=== PATIENT | female | born 1960 | race Caucasian/White ===

== ENCOUNTER 2017-01-17 17:42 | Emergency (ER) | payer BC ==
--- NOTE | 2017-01-17 18:06 | Emergency Department Record ---
History of Present Illness - General Chief Complaint: Knee injury Stated Complaint: R KNEE INJURY Time Seen by Provider: 01/17/17 17:57 Source: Patient Mode of Arrival: Ambulatory Limitations: No limitations - History of Present Illness Initial Comments: 56 yo female presents after a fall while standing on her toilet cleaning in the bathroom. No head or neck injury. She did hit her medial right knee and ler left ankle is now sore. No lacerations to the skin. No chest or abdominal pain. No new back pain. She does have some chronic back pain with a nerve stimulator. MD Complaint: Knee injury, Ankle injury Onset/Timin -: Hour(s) Injury: Knee: Right, Ankle: Left Type of Injury: Blunt, Other Place: Home Severity: Moderate Severity scale (1-10): 1 Improves With: Rest Worsens With: Movement, Weight bearing Context: Fall - Related Data Home Medications Medication Instructions Recorded Confirmed Last Taken Albuterol Sulfate 0.083% [Neb] 3 ml NEB .EVERY 4-6 HOURS PRN 01/17/17 01/17/17 1 Day Ago ~01/16/17 Albuterol Sulfate [Proair Hfa] 1 - 2 puff IH .EVERY 4-6 HOURS PRN 01/17/1701/17 1 Day Ago ~01/16/17 Atorvastatin Calcium 20 mg PO DAILY 01/17/17 01/17/17 1 Day Ago ~01/16/17 Duloxetine HCl [Cymbalta] 60 mg PO DAILY 01/17/17 01/17/17 1 Day Ago ~01/16/17 Ergocalciferol (Vitamin D2) 50,000 unit PO WEEKLY 01/17/17 01/17/17 1 Day Ago [Vitamin D2] ~01/16/17 Exenatide Microspheres [Bydureon 2 mg SQ WEEKLY 01/17/17 01/17/17 1 Day Ago Pen] ~01/16/17 Fluticasone Propionate [Allergy 1 spray NS ASDIR 01/17/17 01/17/17 1 Day Ago Relief] ~01/16/17 Glyburide 5 mg PO DAILY 01/17/17 01/17/17 1 Day Ago ~01/16/17 Latanoprost 0.005% Opth Maddy 1 drop OP DAILY 01/17/17 01/17/17 1 Day Ago [Xalatan] ~01/16/17 Lisinopril [Prinivil] 10 mg PO DAILY 01/17/17 01/17/17 1 Day Ago ~01/16/17 Metformin HCl 850 mg PO TID 01/17/17 01/17/17 1 Day Ago ~01/16/17 Metoprolol Succinate 100 mg PO DAILY 01/17/17 01/17/17 Unknown Pregabalin [Lyrica] 150 mg PO BID 01/17/17 01/17/17 1 Day Ago ~01/16/17 Allergies Allergy/AdvReac Type Severity Reaction Status Date / Time No Known Drug Allergies Allergy Verified 01/17/17 17:59 Travel Screening - Travel/Exposure Within Last 30 Days Have you traveled within the last 30 days?: No - Travel/Exposure Within Last Year Have you traveled outside the [place] in the last year?: No - Additonal Travel Details Have you been exposed to anyone with a communicable illness?: No - Travel Symptoms Symptom Screening: None Review of Systems Constitutional: Denies: Chills, Fever, Malaise, Weakness Eyes: Denies: Eye discharge, Eye pain, Photophobia ENT: Denies: Congestion, Throat pain Respiratory: Denies: Cough, Dyspnea, Hemoptysis, Wheezes Cardiovascular: Denies: Chest pain, Syncope Endocrine: Denies: Fatigue, Polydipsia, Polyuria Gastrointestinal: Denies: Abdominal pain, Diarrhea, Nausea, Vomiting Genitourinary: Denies: Dysuria, Urgency Musculoskeletal: Reports: As per HPI, Arthralgia, Back pain, Joint swelling, Myalgia. Denies: Neck pain Skin: Reports: As per HPI, Bruising. Denies: Change in color, Rash Neurological: Denies: Headache, Numbness, Weakness Psychiatric: Denies: Anxiety Hematological/Lymphatic: Denies: Blood Clots, Easy bleeding, Easy bruising Past Medical History - SOCIAL HISTORY Smoking Status: Former smoker Alcohol Use: None Drug Use: None - RESPIRATORY Hx Asthma: Yes Hx Bronchitis: Yes Hx COPD: Yes Hx Pneumonia: Yes Hx Sleep Apnea: Yes Hx of CPAP: Yes - CARDIOVASCULAR Hx Hypertension: Yes Comment:: angina - NEURO Hx Neuro Disorders: No - GI Hx Diverticulitis: Yes Hx Reflux: Yes Hx Irritable Bowel: Yes - Hx Bladder Problem: Yes (bladder sling) - ENDOCRINE Hx Diabetes: Yes Hx Thyroid Disease: No - PSYCH Hx Depression: Yes - HEMATOLOGY/ONCOLOGY Hx Anemia: No Hx Blood Disorders: No Hx Bruising: No Hx Cancer: No Family Medical History Any Significant Family History?: Yes Physical Exam - General General Appearance: Alert, Oriented x3, Cooperative, No acute distress Limitations: No limitations - Head Head exam: Atraumatic, Normocephalic, Normal inspection Head exam detail: negative: Abrasion, Contusion, Hematoma, Laceration - Eye Eye exam: Normal appearance. negative: Periorbital swelling - ENT ENT exam: Normal exam. negative: Mucous membranes moist Ear exam: Normal external inspection Nasal Exam: Normal inspection Mouth exam: Normal external inspection - Neck Neck exam: Normal inspection, Full ROM. negative: Tenderness - Respiratory Respiratory exam: Normal lung sounds bilaterally. negative: Respiratory distress - Cardiovascular Cardiovascular Exam: Regular rate, Normal rhythm, Normal heart sounds - GI/Abdominal GI/Abdominal exam: Soft. negative: Tenderness - Rectal Rectal exam: Deferred - exam: Deferred - Extremities Extremities exam: Full ROM, Joint swelling, Tenderness. negative: Normal inspection Image of Full Body: 1 - knee tenderness medial with bruising, full ROM, patella is intact and full ROM without pain or tenderness. 2 - mild diffuse ankle swelling, normal inspection - Back Back exam: Reports: Full ROM. Denies: CVA tenderness (R), CVA tenderness (L) - Neurological Neurological exam: Alert, Oriented X3. negative: Altered - Psychiatric Psychiatric exam: Normal affect, Normal mood - Skin Skin exam: Dry, Intact, Normal color, Warm Course Vital Signs 01/17/17 17:46 Temperature 99.0 F Pulse Rate 87 Respiratory 16 Rate Blood Pressure 201/115 Pulse Ox 98 - Reevaluation(s) Reevaluation #1: 01/17/17 18:33 The XR were read as negative for acute fracture The patient does have an unsteady feeling with the right knee She will be placed in a knee immobilizer and crutches She is to ice, elevate and minimize weight bearing 01/17/17 18:39 The patient has a prescription ready for her at the pharmacy for her blood pressure medication Disposition Disposition: Discharge Clinical Impression: Contusion of knee, right Qualifiers: Encounter type: initial encounter Qualified Code(s): S80.01XA - Contusion of right knee, initial encounter Left ankle sprain Qualifiers: Encounter type: initial encounter Involved ligament of ankle: unspecified ligament Qualified Code(s): S93.402A - Sprain of unspecified ligament of left ankle, initial encounter Disposition: Home, Self-Care Condition: (1) Good Instructions: Knee Sprain (ED) Additional Instructions: Ice and tender swollen areas Elevate to minimize swelling Call your doctor for a recheck this week Return if worse or uncontrolled pain Use the brace for support and comfort Forms: Patient Portal Access Time of Disposition: 18:34 Quality - Quality Measures Quality Measures: N/A - Blood Pressure Screening Does Patient Have Any of the Following: No Blood Pressure Classification: Hypertensive Reading Systolic Measurement: 201 Diastolic Measurement: 115 Screening for High Blood Pressure: < Pre-Hypertensive BP, F/U Documented > [ [id number]] Pre-Hypertensive Follow-up Interventions: Referral to alternative/primary care provider.
--- NOTE | 2017-01-19 15:29 | RADIOLOGY REPORT ---
DATE: 01/17/2017 at 1805. EXAM: LEFT ANKLE, COMPLETE HISTORY: Acute pain post fall. TECHNIQUE: Three views of the left ankle. COMPARISON: None. ENCOUNTER: Initial. FINDINGS: There is normal bone mineralization. No definite acute fracture, dislocation, or destructive bone lesion is seen. There is a small, well corticated ossific density projecting adjacent to the tip of the medial malleolus measuring 5.0 x 4.0 mm. This has a chronic appearance. An additional tiny calcific density is noted near the dorsal medial margin of the talar neck. This measures 2.0 mm in diameter. No definite donor site is seen. This is also likely chronic with an acute avulsion fracture much less likely. The ankle mortis joint is symmetric. There is mild anterolateral soft tissue swelling. IMPRESSION: 1. NO DEFINITE ACUTE FRACTURE NOR DISLOCATION. MILD ANTEROLATERAL SOFT TISSUE SWELLING. 2. CHRONIC-APPEARING OSSIFIC DENSITY NOTED ADJACENT TO THE TIP OF THE MEDIAL MALLEOLUS. A 2.0 MM CALCIFIC DENSITY PROJECTING NEAR THE DORSAL MEDIAL MARGIN OF THE TALAR NECK DISCUSSED ABOVE. JOB [facility]BER: [id number] [facility]
--- NOTE | 2017-01-19 15:33 | RADIOLOGY REPORT ---
DATE: 01/17/2017 at 1805. EXAM: RIGHT KNEE, COMPLETE. HISTORY: Medial right knee pain post fall. TECHNIQUE: Four views of the right knee. COMPARISON: None. ENCOUNTER: Initial. FINDINGS: There is normal bone mineralization. Mild tricompartmental degenerative changes are identified, most pronounced in the medial compartment. There is a borderline joint effusion. There is mild anteromedial soft tissue swelling. IMPRESSION: 1. NO ACUTE FRACTURE NOR DISLOCATION. 2. MILD TRICOMPARTMENTAL DEGENERATIVE CHANGES, MOST PRONOUNCED IN THE MEDIAL COMPARTMENT. BORDERLINE JOINT EFFUSION. 3. ANTEROMEDIAL SOFT TISSUE SWELLING. [facility]OB [facility]BER: [id number] [facility]
== END 2017-01-17 18:57 | disposition home or self-care (01) ==
LOC: ER 17:42
DX: S93.402A Sprain of unspecified ligament of left ankle, initial encounter (principal); S80.01XA Contusion of right knee, initial encounter; W18.12XA Fall from or off toilet with subsequent striking against object, initial encounter; Y93.E9 Activity, other interior property and clothing maintenance; Y92.009 Unspecified place in unspecified non-institutional (private) residence as the place of occurrence of the external cause
CPT/HCPCS: 99283; 99284